=== PATIENT | female | born 1930 | race Hispanic/Latino ===

== ENCOUNTER 2019-05-28 02:37 | Observation (INO) ==
--- NOTE | 2019-05-28 02:43 | PROVIDER DOCUMENTATION ---
HPI-Chest Pain - General Stated Complaint: CHEST PAIN Time Seen by Provider: 05/28/19 02:40 Source: patient, family Allergies/Adverse Reactions: Patient Allergies Allergy/AdvReac Type Severity Reaction Status Date / Time Penicillins Allergy RASH Verified 11/16/16 19:27 Home Medications: Home Medication List Medication Instructions Recorded Confirmed Last Taken Type Levothyroxine [Synthroid] 100 microgm PO DAILY 03/09/13 11/16/16 11/16/16 10:00 History Metformin E.r. [Glucophage Xr] 1,000 mg PO BID CC 03/09/13 11/16/16 11/16/16 10:00 History ROSUVAstatin [Crestor] 20 mg PO DAILY 03/09/13 11/16/16 11/16/16 10:00 History Brimonidine 0.15% Ophth Soln 1 drop BOTH EYES TID 01/28/15 11/16/16 11/16/16 10:00 History [Alphagan P 0.15% Ophth Soln] Latanoprost 0.005% Oph Soln 1 drop BOTH EYES DAILY 01/28/15 11/16/16 11/16/16 10:00 History [Xalatan 0.005% Oph Soln] Metoprolol [Lopressor] 100 mg PO DAILY 04/25/15 11/16/16 11/16/16 10:00 History Ezetimibe [Zetia] 10 mg PO DAILY 04/29/15 11/16/16 11/16/16 10:00 History Losartan [Cozaar] 50 mg PO DAILY 04/29/15 11/16/16 11/16/16 10:00 History Timolol 0.5% Gel Forming Oph 1 drop BOTH EYES DAILY 04/29/15 11/16/16 11/16/16 10:00 History [Timoptic-Xe Oph Solution] Pioglitazone [Actos] 15 mg PO DAILY 06/07/16 11/16/16 11/16/16 10:00 History Sitagliptin Phosphate [Januvia] 100 mg PO DAILY 06/07/16 11/16/16 11/16/16 10:00 History Ferrous Sulfate 325 mg PO DAILY 08/30/16 11/16/16 11/16/16 10:00 History - History of Present Illness-CP Nature of Presenting Problem: Patient is a 88 year old female with history of CAD (S/P ND in 2003), diabetes,left eye blindness, and hyerperlipidemia who presents with 10/10 sharp pleuritc substernal chest apin since 2am today. Followed by Dr. Paige. Location: reports: substernal Chest Pain Radiation: reports: no radiation Quality of Pain: reports: sharp Severity in ED: moderate Onset/Duration: 1 hour ago Timing: still present Context/Activities at Onset: reports: rest Modifying Factors: improves with: nothing Associated Symptoms: reports: denies symptoms Nitro Today/Relief: 0.4 mg x 1, no relief Aspirin Treatment Today: no aspirin today Prior Chest Pain/Cardiac Workup: reports: heart attack Similar Symptoms Previously?: Yes Recently Seen Here or By Another Healthcare Provider: No Review of Systems - Adult - REVIEW OF SYSTEMS - ADULT ROS:: limited per condition Constitutional: reports: other (poor historian, unable to speak [place]). denies: chills, fever Eyes: reports: other (blindness) Ears, Nose, Mouth & Throat: denies: throat pain Cardiovascular: reports: see HPI, chest pain Past History - Adult - PAST MEDICAL HISTORY-ADULT Review of Records: reports: Old Records Reviewed, Nursing Assessment Review, Medications Reviewed, Social history reviewed & non-contributory. Major Childhood Illnesses: reports: denies history Cardiovascular: reports: HTN Respiratory: reports: denies history Gastrointestinal: reports: denies history Obstetrical/Gynecological: reports: denies history Genitourinary: reports: denies history Musculoskeletal: reports: denies history Neurological: reports: denies history Endocrine/Immune: reports: Diabetes, thyroid disorder (hypothyroid) Other Conditions: reports: denies history - PRIOR SURGERIES/PROCEDURES Surgical/Procedure History: reports: cardiac stent, joint replacement (knee), back/neck (lumbar microlaminectomy) - IMMUNIZATION STATUS Childhood Immunizations: See Nurse Assessment Flu Vaccine: See Nurse Assessment - FAMILY HISTORY Family History: reviewed, not pertinent Physical Exam-General - PHYSICAL EXAM-ADULT Initial Vital Signs Reviewed: Yes - CONSTITUTIONAL General Appearance: alert, no apparent distress, other (demented, left eye blindness, limited vision in right eye, nondiaphoretic) - HEAD, EARS, NOSE, MOUTH & THROAT HENMT: normocephalic/atraumatic, moist mucous membranes - NECK Neck: non-tender, full range of motion, supple - RESPIRATORY Respiratory: lungs clear, other (tender to palpation over anterior chest) - CARDIOVASCULAR Cardiovascular: regular rate, rhythm - GASTROINTESTINAL (ABDOMEN) Abdominal Exam: normal bowel sounds, non tender, soft - LYMPHATIC Lymphatic: no adenopathy - MUSCULOSKELETAL Back Exam: normal inspection, no CVA tenderness Extremity: non-tender Peripheral Pulses: radial (R): 2+, radial (L): 2+ - SKIN Integumentary: normal color, normal turgor - NEUROLOGIC Neurologic: grossly normal - PSYCHIATRIC Psych/Mental Status: oriented x 3, anxious - HEART Score HEART Score: History: Slightly Suspicious HEART Score: ECG: Normal HEART Score: Age: > or = 65 Years HEART Score: Risk Factors for Atherosclerotic Disease: > or = 3 Risk Factors or History of Atherosclerotic Disease HEART Score: Troponin: < or = Normal Limit Total HEART Score:: 4 Progress - PLAN OF CARE/RESULTS Progress/Plan/Lab Results: Vital Signs - 8 hr 05/28/19 02:41 Temperature 99.3 F Pulse Rate 82 Respiratory Rate 13 Blood Pressure 127/63 O2 Sat by Pulse Oximetry 96 Laboratory Results - last 24 hr 05/28/19 05/28/19 05/28/19 03:00 03:00 03:00 WBC 5.42 RBC 4.27 Hgb 13.0 Hct 40.0 MCV 93.7 MCH 30.4 MCHC 32.5 L RDW Std Deviation 14.5 Plt Count 132 MPV 11.9 H Immature Gran % (Auto) 0.2 Neut % (Auto) 67.7 Lymph % (Auto) 20.7 [place] % (Auto) 10.5 H Eos % (Auto) 0.7 Baso % (Auto) 0.2 Immature Gran # (Auto) 0.01 Neut # (Auto) 3.67 Lymph # (Auto) 1.[address] [place] # (Auto) 0.57 Eos # (Auto) 0.04 Baso # (Auto) 0.01 D-Dimer, Quantitative 0.74 H Sodium Potassium Chloride Carbon Dioxide Anion Gap BUN Creatinine Estimated GFR/1.73 m2 BUN/Creatinine Ratio Glucose Calculated Osmolality Calcium Total Bilirubin AST ALT Alkaline Phosphatase Creatine Kinase Troponin T < 0.010 Total Protein Albumin Globulin Albumin/Globulin Ratio 05/28/19 03:00 WBC RBC Hgb Hct MCV MCH MCHC RDW Std Deviation Plt Count MPV Immature Gran % (Auto) Neut % (Auto) Lymph % (Auto) [place] % (Auto) Eos % (Auto) Baso % (Auto) Immature Gran # (Auto) Neut # (Auto) Lymph # (Auto) [place] # (Auto) Eos # (Auto) Baso # (Auto) D-Dimer, Quantitative Sodium 138 Potassium 4.4 Chloride 104 Carbon Dioxide 23 L Anion Gap 11 BUN 16 Creatinine 0.5 Estimated GFR/1.73 m2 > 60 BUN/Creatinine Ratio 32 Glucose 151 H Calculated Osmolality 280 Calcium 9.4 Total Bilirubin 0.60 AST 28 ALT 24 Alkaline Phosphatase 104 Creatine Kinase 82 Troponin T Total Protein 6.2 L Albumin 4.0 Globulin 2.0 Albumin/Globulin Ratio 2.0 Orders Category Date Time Status Cardiac Monitoring DIRECTED Care 05/28/19 02:40 Active CHEST-PORTABLE [RAD] Stat Exams 05/28/19 02:43 Taken CTA [CT ANGIOGRM PULMONARY ARTERIES] [CT] Stat Exams 05/28/19 03:46 Ordered CBC WITH ELECTRONIC DIFF [HEME] Stat Lab 05/28/19 03:00 Completed CK PROFILE [SP CHEM] Stat Lab 05/28/19 03:00 Completed CMP [COMPREHENSIVE METABOLIC PANEL] [CHEM] Stat Lab 05/28/19 03:00 Completed D-DIMER [COAG] Stat Lab 05/28/19 03:00 Completed TROPONIN T Stat Lab 05/28/19 03:00 Completed Aspirin Med 05/28/19 02:58 Discontinued 324 mg PO NOW ONE Enoxaparin [Lovenox] Med 05/28/19 03:59 Once 60 mg SUBQ NOW ONE Ketorolac [Toradol] Med 05/28/19 03:02 Discontinued 30 mg IV NOW ONE EKG [EKG] Stat Ther 05/28/19 02:41 Draft Result Diagrams: 05/28/19 03:00 05/28/19 03:00 - EKG 1 Time of EKG reading by physician:: 02:52 EKG Read and Signed by:: Randy Ramirez EKG Interpretation (*Must complete 3 of following elements*): Normal Rate: 78 Rhythm: NSR [place]: normal QRS: normal SD Interval: normal ST Wave: normal Comments: no STEMI - XRAY 1 XRAY Study: Chest XRAY Interpretation: NAD - CONSULTS/PCP/HOSPITALIST Notification #1 *Consult/PCP/Hospitalist*: Dr. Rios, hospitalist Time Discussed: 03:00 Consult Disposition: Admit Departure - Departure Date of Disposition Decision: 05/28/19 Time of Disposition Decision: 04:01 DIAGNOSIS: Elevated d-dimer Chest pain Qualifiers: Chest pain type: unspecified Qualified Code(s): R07.9 - Chest pain, unspecified CAD (coronary artery disease) Qualifiers: Coronary Disease-Associated Artery/Lesion type: unspecified vessel or lesion type [place] vs. transplanted heart: unspecified whether [place] or transplanted heart Associated angina: angina presence unspecified Qualified Code(s): I25.10 - Atherosclerotic heart disease of [place] coronary artery without angina pectoris Disposition: ADMITTED INPATIENT 09 Certified Medical Emergency: Emergent Condition: Stable Referrals and Follow-Ups: Sabino Paige Jr, MD [Primary Care Provider] - - Critical Care Note This patient required my direct & personal management of CC.: No Attestation - Physician/ RUEL Attestation Patient care was provided by Advanced Practice Provider:: No The physician spent face to face time with patient:: Yes Advanced Practice Provider documentation review:: Supervising physician onsite and consulted in the evaluation and care of this patient. The physician did have a face to face encounter with the patient.
[2019-05-28] MEDS ORDERED: ASPIRIN PO ONE (02:58)
--- NOTE | 2019-05-28 03:01 | EKG Report ---
Test Performed on : 05/28/2019 02:51:30 AM Test Reason : pain Blood Pressure : / mmHG Vent. Rate : 078 BPM Atrial Rate : 078 BPM P-R Int : 166 ms QRS Dur : 072 ms QT Int : 368 ms P-R-T Axes : 042 021 052 degrees QTc Int : 419 ms Normal sinus rhythm. Normal ECG When compared with ECG of 08-NOV-2016 12:58, No significant change was found Confirmed by Jean Marie Mcclure MD ([id number]) on 06/15/2019 3:30:23 PM
[2019-05-28] MEDS ORDERED: TORADOL IV ONE (03:02)
[2019-05-28 03:12] LABS: BASO# 0.01 X1000 (0.0-0.2); BASO% 0.2 % (0.0-0.8); EOS# 0.04 X1000 (0.0-0.7); EOS% 0.7 % (0.0-10.0); IMM GRAN# 0.01 X1000 (0.0-0.04); IMM GRAN% 0.2 % (0.0-0.5); LYMPH# 1.12 X1000 (1.2-3.4); LYMPH% 20.7 % (20.5-51.1); MCH 30.4 PG (27-31); MCHC 32.5 g/dL (33-37); MCV 93.7 FL (81-99); MONO# 0.57 X1000 (0.11-0.59); MONO% 10.5 % (1.7-9.3); MPV 11.9 FL (7.4-10.4); NEUT# 3.67 X1000 (1.4-6.5); NEUT% 67.7 % (42.2-75.2); PLT 132 X1000 (130-400); RBC 4.27 XMIL (4.2-5.4); RDW 14.5 % (11.5-14.5); WBC 5.42 X1000 (4.8-10.8)
[2019-05-28 03:31] LABS: AGAP 11; ALKALINE PHOSPHATASE 104 U/L (32-104); BUN 16 mg/dL (8-22); CALCIUM 9.4 mg/dL (8.8-10.2); CHLORIDE 104 mmol/L (98-107); CK PROFILE 82 U/L (24-173); COSMO 280; CREATININE 0.5 mg/dL (0.5-0.9); ESTIMATED GFR > 60; GLUCOSE 151 mg/dL (70-104); GOT 28 U/L (10-30); GPT 24 U/L (10-36); POTASSIUM 4.4 mmol/L (3.5-5.1); SODIUM 138 mmol/L (136-145); TCO2 23 mmol/L (25-35); TOTAL PROTEIN 6.2 g/dL (6.3-8.3)
[2019-05-28] MEDS ORDERED: LOVENOX SUBQ ONE (03:59)
[2019-05-28] MEDS ORDERED: HUMULIN R (PARKWAY) SUBQ ONE (04:28)
--- NOTE | 2019-05-28 07:24 | Diag Imaging Result Doc PS360 ---
CHEST-PORTABLE - 05/28/2019 INDICATION: cp COMPARISON: 11/08/2016 FINDINGS: The lungs are normally expanded and clear. Heart size and mediastinal contours are normal. No pneumothorax or pleural effusion. IMPRESSION: Negative exam. Electronically signed by Chacho Licea 05/28/2019 7:22 AM
--- NOTE | 2019-05-28 07:34 | Diag Imaging Result Doc PS360 ---
CT ANGIOGRM PULMONARY ARTERIES - 05/28/2019 INDICATION: chest pain,elevated d-dimer TECHNIQUE: Axial CT images were obtained after administering intravenous contrast. Coronal MIP images were generated. COMPARISON: 04/25/2015 FINDINGS: There is no pulmonary embolism. Heart and great vessels are normal. There is some mild dependent atelectasis. No infiltrates or edema. Upper abdominal images are unremarkable. There are moderate degenerative changes of the spine. No acute or suspicious bony lesion. IMPRESSION: No acute disease. This exam was performed using automated exposure control, adjustment of mA or kV according to patient size, and/or use of iterative reconstruction technique Electronically signed by Chacho Licea 05/28/2019 7:32 AM
[2019-05-28 08:44] VITALS: BP 114/43
[2019-05-28] MEDS ORDERED: SEROQUEL PO PRN (09:05)
[2019-05-28] MEDS ORDERED: ZETIA PO SCH (09:15)
[2019-05-28] MEDS ORDERED: ACTOS PO SCH (09:15)
[2019-05-28] MEDS ORDERED: NON-FORMULARY MED (Empagliflozin [Jardiance] 25 MG) PO SCH (09:15)
[2019-05-28] MEDS ORDERED: GLUCOPHAGE XR PO SCH (09:15)
[2019-05-28] MEDS ORDERED: LOPRESSOR PO SCH (09:15)
[2019-05-28] MEDS ORDERED: JANUVIA PO SCH (09:15)
[2019-05-28] MEDS ORDERED: COZAAR PO SCH (09:15)
[2019-05-28] MEDS ORDERED: NAMENDA PO SCH (09:15)
[2019-05-28] MEDS ORDERED: TIMOPTIC 0.5% OPH SOLUTION BOTH EYES SCH (09:15)
[2019-05-28] MEDS ORDERED: ARICEPT PO SCH (09:15)
--- NOTE | 2019-05-28 09:34 | HISTORY AND PHYSICAL ---
PRIMARY CARE PHYSICIAN: Dr. Paige. CHIEF COMPLAINT: Chest pain. HISTORY OF PRESENTING ILLNESS: This is an 88-year-old female who speaks no [place], presents to [facility] ER with family who is at the bedside and interprets. Presented with substernal chest pain radiating down her left arm that she rated a 10/10 as a sharp pleuritic-type chest pain that began around 2 a.m. Her workup in the emergency room showed her first set of cardiac enzymes were negative. She has had another set this morning that were negative. She did have a bump in her D-dimer at 0.74. We did a pulmonary arteriogram that showed no acute disease. Currently, she denies any chest pain, no shortness of breath. She did not have any nausea or diaphoresis, but she was admitted for further evaluation and treatment. PAST MEDICAL HISTORY: 1. Hypertension. 2. Diabetes type 2. 3. Coronary artery disease with a history of stent placement. 4. Glaucoma. 5. Hypercholesterolemia. 6. Hypothyroidism. 7. Mild dementia. 8. History of anemia. 9. History of thrombocytopenia. 10. Left eye blindness. 11. DC in 2003. PAST SURGICAL HISTORY: 1. Left TKR. 2. History of stent placement. 3. History of drug-eluting stents dating back to 2012. FAMILY HISTORY: Reviewed and noncontributory. SOCIAL HISTORY: She currently lives with family. Denies any tobacco, alcohol or illicit drug use. ALLERGIES: Penicillin. HOME MEDICATIONS: 1. Alphagan eyedrops 1 drop to both eyes t.i.d. 2. Donepezil 5 mg p.o. daily. 3. Jardiance 25 mg p.o. daily. 4. Zetia 10 mg p.o. daily. 5. Ferrous sulfate 325 mg p.o. t.i.d. 6. Synthroid 88 mg p.o. daily. 7. Cozaar 50 mg p.o. daily. 8. Memantine 10 mg p.o. daily. 9. Metformin 1000 mg p.o. b.i.d. 10. Metoprolol 100 mg p.o. daily. 11. Actos 15 mg p.o. daily. 12. Quetiapine fumarate 50 mg p.o. at bedtime p.r.n. for agitation and sundowning. 13. Crestor 20 mg p.o. daily. 14. Januvia 100 mg p.o. daily. 15. Timolol 1 drop to both eyes daily. LABORATORY DATA: Showed a white blood cell count of 5.42, hemoglobin of 13, hematocrit 40, platelets 132,000. D-dimer of 0.74. Sodium of 138, potassium 4.4, chloride 104, CO2 23, BUN of 16, creatinine 0.5, glucose 151. Cardiac enzymes x2 sets have been negative. Chest x-ray showed a negative exam. Pulmonary arteriogram showed no acute disease. EKG showed normal sinus rhythm at 78. REVIEW OF SYSTEMS: She denied any fever, chills, blurred vision, dizziness. She was positive for substernal chest pain that radiated to her left arm. Denied any coughing, shortness of breath. Denied any abdominal pain, constipation, diarrhea, burning or hurting with urination. PHYSICAL EXAMINATION: VITAL SIGNS: On arrival, she had a temperature of 99.3 degrees, pulse 68, respirations 18, blood pressure 99/58, saturating 95% on room air. Currently, her blood pressure is 114/43. GENERAL: This is an 88-year-old female who does not speak [place]. Family at bedside to answer questions and reviewed medical record. HEENT: Normocephalic, atraumatic. Normal ENT inspection. Oropharynx and nares are clear. EYES: Pupils are equal, round, reactive to light and accommodation. Extraocular movements are intact. NECK: Normal inspection. Normal range of motion. LUNGS: Clear to auscultation bilaterally with equal lung expansion and chest wall movement. HEART: With regular rate and rhythm. No murmurs, rubs, or gallops. ABDOMEN: Soft, nontender, nondistended. Bowel sounds are present x4 quadrants. MUSCULOSKELETAL: She had 5/5 strength x4 extremities. NEUROLOGICAL: The cranial nerves 2-12 appear grossly intact. ASSESSMENT: 1. Chest pain. 2. Elevated D-dimer, ruled out for pulmonary embolism by CTA. 3. Diabetes type 2. 4. Hypertension. 5. Coronary artery disease, history of. Aware. PLAN: She was admitted to the medical unit, placed on telemetry, O2 per protocol. Diabetic diet. We will continue her home medications. She has had 2 sets of cardiac enzymes that are negative. We are going to check another set 4 hours from the last one. If it is negative, family would like to go home and follow up with her primary care physician and further testing per his discretion. We will discuss with attending and further orders after reviewing the third set of enzymes. Dictated by FARIBA Cervantes for Omega Rios MD cc: FARIBA Cervantes MD Roger H. Moss Jr, MD
[2019-05-28] MEDS ORDERED: NON-FORMULARY MED PO SCH (09:45)
[2019-05-28] MEDS ORDERED: FERROUS SULFATE PO SCH (15:00)
[2019-05-28] MEDS ORDERED: ALPHAGAN 0.2% OPHTH SOLN BOTH EYES SCH (15:00)
--- NOTE | 2019-05-28 16:29 | DISCHARGE SUMMARY ---
ADMISSION DATE: 05/28/2019 DISCHARGE DATE: 05/28/2019 DISCHARGE DIAGNOSES: 1. Chest pain, likely gastrointestinal, rule out myocardial infarction. 2. Hypothyroidism. 3. Diabetes. 4. High cholesterol. 5. Advanced age. 6. Glaucoma. CONSULTATIONS: None. PROCEDURES: None. BRIEF HOSPITAL COURSE: The patient is an 88-year-old female who presented to the hospital with chest pain. Thankfully, she ruled out ND. Family declined any further intervention. She notes that she did have an ND in 2003 but they declined staying in the hospital for a further stress test. DISPOSITION: The patient will be discharged home. She will continue all of her home medications. She will follow up outpatient with treatment facility of choice. cc: Omega Rios MD
[2019-05-28] MEDS ORDERED: CRESTOR PO SCH (21:00)
[2019-05-29] MEDS ORDERED: SYNTHROID PO SCH (07:00)
--- NOTE | 2019-05-29 09:07 | HISTORY AND PHYSICAL ---
ADDENDUM: Patient seen and examined by myself. Full note dictated and discussed with nurse practitioner. Patient presented to the hospital with chest pain. We will admit her for rule out NM. First 2 sets of cardiac enzymes are negative. We will restart her home medications. Further orders as needed. cc: Omega Rios MD MTDD
== END 2019-05-28 13:02 | disposition home or self-care (01) ==
LOC: P.ED 02:37 → INTOOBSV 04:31 → P.MEDSURG 04:31
PROVIDERS: ATTEND Family Medicine